=== PATIENT | male | born 1945 | race Caucasian/White ===

== ENCOUNTER → 2016-11-21 | Outpatient (CLI) | payer OTHER ==
--- NOTE | ~2016-11-21 | CR142 ---
[facility] A Service of [facility] RADIOLOGY TEXT RESULTS PATIENT: LIAM HUGHES LOCATION: [facility] : 45 UNIT #: [id number] AGE: [address]: Elizabeth Delgadillo MD SEX: M ORDER DR: [id number] [place] [id number] O MR#: [id number] Acc #: [id number] NAME: LIAM HUGHES : 1945 SEX: M STUDY DATE/TIME: 11/21/2016 10:18 UNIT: [facility] ROOM: STUDY DESCRIPTION: CR Hand Min 3 Views Rt Attending Physician: Elizabeth Delgadillo M.D. Referring Physician: Elizabeth Delgadillo M.D. Ordering Physician: Elizabeth Delgadillo M.D. Primary Care Physician: Elizabeth Delgadillo M.D. MEDICAL IMAGING REPORT This report is preliminary unless electronic signature is present. EXAM Right hand 3 views 11/21/2016 10:18 a.m. COMPARISON None. HISTORY Order states right hand pain. History sheet states pain right hand in several knuckles for 6 months but worsening over the last 3 months. No injury. Pain is worse at the first and fifth MCP joints and the third proximal phalangeal joint. FINDINGS There is an old healed fifth metacarpal fracture with minimal deformity. The fifth MCP joint demonstrates no arthritic change. MCP joints are unremarkable. There is minimal spurring of the DIP of the middle finger. No high-grade arthritic changes are noted. Wrist is unremarkable. IMPRESSION 1. Mild healed fracture deformity fifth metacarpal without fifth MCP arthrosis. 2. Minimal osteophyte formation of the DIP of the middle finger. No other areas of arthritis are noted. 3. No fracture or osseous lesion. Dictated by... Ekaterina Morocho M.D. THIS IS AN ELECTRONICALLY VERIFIED REPORT [facility] A Service of [facility] RADIOLOGY TEXT RESULTS PATIENT: LIAM HUGHES LOCATION: [facility] : 45 UNIT #: [id number] AGE: [address]: Elizabeth Delgadillo MD SEX: M ORDER DR: Ekaterina Morocho M.D. at 11/22/2016 12:04 PM [facility] TD: 11/21/2016 14:40 JOB #: [id number] MEDICAL IMAGING REPORT Page 1 of 1
== END | disposition home or self-care (01) ==
LOC: SRAD 10:02
DX: M79.641 Pain in right hand (principal); M21.941 Unspecified acquired deformity of hand, right hand
CPT/HCPCS: 73130